=== PATIENT | male | born 1995 | race Caucasian/White ===

== ENCOUNTER 2017-03-13 07:54 | Emergency (ER) | payer SELFPAY ==
[~2017-03-13] VITALS: Ht 180.3 cm; Wt 111.4 kg
[2017-03-13] MEDS ORDERED: ANTIBIOTIC PO (08:02)
[2017-03-13] MEDS ORDERED: IBUP-1547 PO (08:02)
[2017-03-13] MEDS ORDERED: SODIUM CHLORIDE 0.9% 1,000 ML IV ONE ×2 (08:15→10:45)
[2017-03-13 08:40] LABS: BASOPHILS % (AUTO) 0.5 % (0.0-2.0); EOSINOPHILS % (AUTO) 0.5 % (1.0-6.0); HEMATOCRIT 48.7 % (41-53); HEMOGLOBIN 16.4 g/dL (13.5-17.5); LYMPHOCYTES # (AUTO) 1.5 K/uL (1.0-4.8); MEAN CORPUSCULAR HEMOGLOBIN 26.7 pg (26.0-34.0); MEAN CORPUSCULAR HGB CONC 33.8 G/dL (31.0-37.0); MEAN CORPUSCULAR VOLUME 79 fL (80-100); MONOCYTES # (AUTO) 0.6 K/uL (0.1-1.0); MONOCYTES % (AUTO) 8.3 % (2.0-9.0); NEUTROPHILS # (AUTO) 5.2 K/uL (1.8-7.7); NEUTROPHILS % (AUTO) 70.7 % (40.0-70.0); PLATELET COUNT (AUTO) 340 K/uL (150-450); RED BLOOD CELL COUNT(AUTO) 6.15 MIL/uL (4.50-5.90); RED CELL DISTRIBUTION WIDTH 14.5 % (11.5-14.5); WHITE BLOOD COUNT (AUTO) 7.3 K/uL (4.5-11.0)
[2017-03-13] MEDS ORDERED: IBUP-2070 PO (08:42)
[2017-03-13] MEDS ORDERED: AMOX1TAB15 PO (08:42)
[2017-03-13 08:49] LABS: ANION GAP 16 mmol/L (8-16); CALCIUM, TOTAL 9.4 mg/dL (8.8-10.5); CARBON DIOXIDE 24 mmol/L (22-29); CHLORIDE 104 mmol/L (98-107); GLOMERULAR FILTR. RATE CALC > 60 mL/min (>60); POTASSIUM 3.6 mmol/L (3.5-5.1); SODIUM SERUM 144 mmol/L (136-145); UREA NITROGEN, BLOOD 9 mg/dL (7-18)
[2017-03-13 08:55] LABS: ALANINE AMINOTRANSFERASE 20 U/L (12-78); ALBUMIN 4.3 g/dL (3.4-5.0); ASPARTATE AMINOTRANSFERASE 13 U/L (15-37); BILIRUBIN,TOTAL 0.8 mg/dL (0.1-1.0); TOTAL PROTEIN, SERUM 8.6 g/dL (6.4-8.2)
[2017-03-13 10:03] LABS: GLUCOSE, URINE (UA) NEGATIVE (NEGATIVE); KETONES,URINE >=80 mg/dL (NEGATIVE); LEUKOCYTE ESTERASE ,URINE NEGATIVE (NEGATIVE); OCCULT BLOOD,URINE NEGATIVE (NEGATIVE); PROTEIN,URINE POS 1+ (NEGATIVE)
[2017-03-13 10:11] LABS: APPEARANCE,URINE HAZY (CLEAR); RBC,URINE 0-2 /HPF (0-2); WBC,URINE 0-2 /HPF (0-5)
[2017-03-13 12:17] VITALS: BP 121/72
== END 2017-03-13 12:19 | disposition home or self-care (01) ==
LOC: EMS 07:57
DX: R55 Syncope and collapse (principal); E86.0 Dehydration; R51 Headache; S06.0X9D Concussion with loss of consciousness of unspecified duration, subsequent encounter; J45.909 Unspecified asthma, uncomplicated; X58.XXXD Exposure to other specified factors, subsequent encounter
CPT/HCPCS: 36415; 70450; 71010; 80053; 80307; 81001; 85025; 93005; 96360; 96361; 99285; J7030

== ENCOUNTER 2017-03-24 10:52 | Emergency (ER) | payer SELFPAY ==
[~2017-03-24] VITALS: Ht 180.3 cm; Wt 111.3 kg
[~2017-03-24 10:52] MED LIST: AMOX1TAB15 PO; IBUP-2070 PO
[2017-03-24 12:17] VITALS: BP 139/78
== END 2017-03-24 12:38 | disposition home or self-care (01) ==
LOC: EMS 10:56
DX: S13.4XXA Sprain of ligaments of cervical spine, initial encounter (principal); J45.909 Unspecified asthma, uncomplicated; V49.40XA Driver injured in collision with unspecified motor vehicles in traffic accident, initial encounter; Y93.89 Activity, other specified; Y92.89 Other specified places as the place of occurrence of the external cause; Y99.8 Other external cause status
CPT/HCPCS: 72040; 99284

== ENCOUNTER 2017-06-14 09:03 | Emergency (ER) | payer MEDICAID ==
[~2017-06-14] VITALS: Ht 180.3 cm; Wt 111.4 kg
[2017-06-14] MEDS ORDERED: IBUPROFEN 800 MG TABLET PO ONE (12:15)
[2017-06-14 12:21] LABS: APPEARANCE,URINE CLEAR (CLEAR); GLUCOSE, URINE (UA) NEGATIVE (NEGATIVE); KETONES,URINE NEGATIVE (NEGATIVE); LEUKOCYTE ESTERASE ,URINE NEGATIVE (NEGATIVE); OCCULT BLOOD,URINE NEGATIVE (NEGATIVE); PROTEIN,URINE NEGATIVE (NEGATIVE)
[2017-06-14 12:27] LABS: ADD UA MICROSCOPIC NO
[2017-06-14 12:45] LABS: INFLUENZA TYPE B NEGATIVE FOR TYPE B (NEGATIVE)
[2017-06-14 13:06] VITALS: BP 118/71
== END 2017-06-14 13:11 | disposition home or self-care (01) ==
LOC: EMS 09:04
DX: J06.9 Acute upper respiratory infection, unspecified (principal); M54.5 Low back pain; J45.909 Unspecified asthma, uncomplicated; F12.90 Cannabis use, unspecified, uncomplicated
CPT/HCPCS: 87804; 99284